=== PATIENT | male | born 1995 | race Caucasian/White ===

== ENCOUNTER 2021-03-23 09:03 | Emergency (ER) | payer MEDICAID, OTHER ==
[~2021-03-23] VITALS: Ht 182.9 cm; Wt 79.5 kg
--- NOTE | 2021-03-23 09:35 | NUR ---
PT C/O WAKING UP WITH A HEADACHE. PT ALSO STATES HE HAD A BOUT OF HAVING VISION ISSUES WHEN HE WAS AT WORK. PT DENIES HX OF ISSUES WITH VISION OR MIGRAINES. PT SHENCHRISTIAN HAS A HEADACHE, 04/06.
[2021-03-23] MEDS ORDERED: KETOROLAC 30 MG/1 ML ONE (09:57)
[2021-03-23] MEDS ORDERED: DIPHENHYDRAMINE 50 MG/ML, 1ML ONE (09:57)
[2021-03-23] MEDS ORDERED: METOCLOPRAMIDE 5 MG/ML, 2ML ONE (09:57)
[2021-03-23] MEDS ORDERED: SODIUM CHLORIDE 0.9% 1,000ML IVBOLUS ONE (10:00)
[2021-03-23 10:09] LABS: BASOPHILS % (AUTO) 1 % (0-1); EOSINOPHILS % (AUTO) 5 % (1-7); LYMPHOCYTES % (AUTO) 45 % (22-44); MEAN CORPUSCULAR HEMOGLOBIN 30.9 pg (27.5-34.5); MEAN CORPUSCULAR HGB CONC 34.2 g/dL (33.2-36.2); MEAN PLATELET VOLUME 8.8 fL (7.4-10.4); MONOCYTES % (AUTO) 9 % (2-9); NEUTROPHILS % (AUTO) 41 % (42-75); PLATELET COUNT 236 x10^3/uL (130-400); RED CELL DISTRIBUTION WIDTH 12.7 % (9.4-14.8)
[2021-03-23 10:21] LABS: ALBUMIN 4.4 g/dL (3.4-5.0); ANION GAP 7 mmol/L (5-15); CHLORIDE 106 mmol/L (98-107); CREATININE 0.87 mg/dL (0.7-1.3)
[2021-03-23] MEDS ORDERED: KETOROLAC 30 MG/1 ML IVPush ONE (10:30)
[2021-03-23] MEDS ORDERED: METOCLOPRAMIDE 5 MG/ML, 2ML IVPush ONE (10:30)
[2021-03-23] MEDS ORDERED: SODIUM CHLORIDE FLUSH 10ML SYR IVF ONE (10:30)
[2021-03-23] MEDS ORDERED: DIPHENHYDRAMINE 50 MG/ML, 1ML IVPush ONE (10:30)
[2021-03-23 10:48] LABS: MD SCAN
[2021-03-23 11:45] VITALS: BP 111/70
--- NOTE | 2021-03-23 11:51 | NUR ---
PT REC'VD DISCHARGE INSTRUCTIONS AND EDUCATION. PT HAD NO FURTHER QUESTIOS. PT AMBULATED TO DC AREA, STEADY GAIT.
== END 2021-03-23 12:12 | disposition home or self-care (01) ==
LOC: ED 09:53
DX: R51.9 Headache, unspecified (principal); J32.9 Chronic sinusitis, unspecified
CPT/HCPCS: 36415; 70450; 80048; 82040; 85025; 96361; 96374; 96375; 99284; J1200; J1885; J2765; J7030